=== PATIENT | female | born 1940 | race Caucasian/White ===

== ENCOUNTER 2016-11-23 09:50 | Day surgery (SDC) | payer MEDICARE, MEDICAID ==
[2016-11-23] MEDS ORDERED: Lidocaine Topical 2% 30 mL Jelly ONE (10:20)
[2016-12-07] MEDS ORDERED: IBUP-1827 PO (13:06)
[2016-12-07] MEDS ORDERED: RABE20TA27 PO (13:06)
[2016-12-07] MEDS ORDERED: LORA0.5T PO (13:06)
[2016-12-07] MEDS ORDERED: POLY17PO6 PO (13:06)
[2016-12-07] MEDS ORDERED: FOLI-89 PO (13:06)
[2016-12-07] MEDS ORDERED: TRAM50TA2 PO (13:06)
== END 2016-11-23 23:59 | disposition home or self-care (01) ==
LOC: END 09:50
PROVIDERS: ATTEND Internal Medicine Gastroenterology
DX: K44.9 Diaphragmatic hernia without obstruction or gangrene (principal); R13.10 Dysphagia, unspecified